=== PATIENT | female | born 1965 | race Caucasian/White ===

== ENCOUNTER 2021-11-03 19:22 | Emergency (ER) | payer OTHER ==
[2021-11-03] MEDS ORDERED: Ondansetron PF 4 MG/2 ML Vial ONE (19:38)
[2021-11-03] MEDS ORDERED: Metoprolol Tartrate 5 MG/5 ML VIAL ONE ×3 (19:38→20:03)
[2021-11-03 19:51] LABS: #Basophils 0.1 thou/uL (0.0-0.2); #Eosinphils 0.1 thou/uL (0.0-0.7); #Lymphocytes 3.1 thou/uL (1.20-3.40); #Monocytes 0.8 thou/uL (0.11-0.59); #Neutrophils 7.6 thou/uL (1.40-6.50); %Basophils 0.7 % (0.0-1.0); %Eosinophils 1.1 % (0.0-10.0); %Lymphocytes 26.5 % (21.0-51.0); %Monocytes 6.4 % (0.0-10.0); %Neutrophils 65.2 % (42.0-75.0); Hemoglobin 14.9 g/dL (12.0-16.0); Mean Corpuscular HGB CONC 33.6 g/dL (32.0-36.0); Mean Corpuscular Hemoglobin 29.2 pg (27.0-31.0); Mean Corpuscular Volume 86.9 fL (78.0-98.0); Mean Platelet Volume 6.9 fL (7.4-10.4); Platelet Count 258 thou/uL (130-400); White Blood Cell (WBC) Count 11.7 thou/uL (4.8-10.8)
[2021-11-03 20:17] LABS: ALT (SGPT) 24 U/L (8-55); AST (SGOT) 29 U/L (5-34); Albumin 4.2 g/dL (3.5-5.0); Alkaline Phosphatase 127 U/L (40-110); Anion Gap 16 mmol/L (10-20); BUN (Urea Nitrogen) 11 mg/dL (9.8-20.1); Bilirubin, Total 0.9 mg/dL (0.2-1.2); Calc. Creatinine Clearance 0 mL/min (70-130); Carbon Dioxide 28 mmol/L (22-29); Chloride 102 mmol/L (98-107); Globulin 3.5 g/dL (2.4-3.5); Glucose 97 mg/dL (70-105); Lipase 50 U/L (8-78); Magnesium 1.8 mg/dL (1.6-2.6); Potassium 3.6 mmol/L (3.5-5.1); Protein, Total 7.7 g/dL (6.0-8.3); Sodium 142 mmol/L (136-145)
[2021-11-03 20:33] LABS: CKMB 2.3 ng/mL (0-6.6)
[2021-11-03] MEDS ORDERED: Aspirin Chewable 81 MG TAB ONE (20:36)
[2021-11-03 20:43] LABS: Calcium 12.1 mg/dL (7.8-10.44)
[2021-11-03] MEDS ORDERED: Heparin 10,000 UNITS/1 ML VIAL ONE (20:48)
[2021-11-03] MEDS ORDERED: Heparin 25,000 units/D5W 500 ML ONE (20:48)
[2021-11-03] MEDS ORDERED: Nitroglycerin 50 MG/250 ML BOT 250 ML ONE (21:15)
[2021-11-03 21:30] LABS: INR-International Normal Ratio 0.9; PTT 28.2 sec (22.9-36.1); Prothrombin Time 11.7 sec (12.0-14.7)
[2021-11-03 22:12] LABS: SARS-CoV-2 NAA Rapid Test Not Detected (NotDetected)
== END 2021-11-03 21:40 | disposition short-term general hospital (02) ==
LOC: BURERS 19:22
DX: I10 Essential (primary) hypertension (principal); I24.9 Acute ischemic heart disease, unspecified; R00.0 Tachycardia, unspecified; R77.8 Other specified abnormalities of plasma proteins; Z20.822 Contact with and (suspected) exposure to COVID-19
CPT/HCPCS: 71045; 80053; 82553; 83605; 83690; 83735; 84484; 85025; 85610; 85730; 93005; 94760; 96365; 96374; 96375; 96376; J1644; J2405; U0002